=== PATIENT | male | born 1965 | race African-American/Black ===

== ENCOUNTER 2019-01-22 09:34 | Emergency (ER) | payer MEDICAID ==
[~2019-01-22] VITALS: Ht 180.3 cm; Wt 96.6 kg
[2019-01-22 10:11] LABS: Basophils # (auto) 0.1 uL; Basophils % (auto) 0.9 % (0.0-2.0); Eosinophils # (auto) 0.2 uL; Eosinophils % (auto) 2.8 % (0.0-7.0); Hemoglobin 15.3 g/dL (13.5-17.5); Lymphocytes # (auto) 2.1 uL; Lymphocytes % (auto) 33.1 % (10.0-50.0); Mean Corpuscular Hemoglobin 32.4 pg (28.0-32.0); Mean Corpuscular Hgb Conc. 33.2 g/dL (32.0-36.0); Mean Corpuscular Volume 97.8 fL (80.0-100.0); Monocytes # (auto) 0.4 uL; Monocytes % (auto) 6.7 % (0.0-12.0); Neutrophils # (auto) 3.5 uL; Neutrophils % (auto) 56.5 % (37.0-80.0); Nucleated Red Blood Cells % 0.1 %; Platelet Count (auto) 228 10^3/uL (140-450); Red Blood Cells 4.71 10^6/uL (4.5-5.90); Red Cell Distribution Width 13.4 % (11.8-14.3); White Blood Cell 6.3 10^3/uL (4.4-10.8)
[2019-01-22 10:21] LABS: Albumin 3.5 g/dL (3.4-5.0); Calcium 8.5 mg/dL (8.5-10.1); Potassium 4.1 mmol/L (3.5-5.1)
[2019-01-22 10:26] LABS: Bilirubin, Total 0.4 mg/dL (0.2-1.0); Total Protein 7.4 g/dL (6.4-8.2)
[2019-01-22] MEDS ORDERED: SODIUM CHLORIDE 0.9% 1,000 ML IV ONE (10:58)
[2019-01-22] MEDS ORDERED: ASPirin 81 mg TAB PO ONE (11:00)
[2019-01-22] MEDS ORDERED: cloNIDine HCL 0.1 MG TAB PO ONE (11:15)
[2019-01-22 11:39] LABS: INR 1.07 (0.9-1.15); Partial Thromboplastin Time 29.5 sec (23.64-32.05)
[2019-01-22 11:40] LABS: Urine Bacteria NONE SEEN /hpf (None Seen); Urine Blood Negative /uL (Negative); Urine Specific Gravity 1.012 (1.001-1.035); Urine WBC <1 /hpf (0 - 3)
[2019-01-22 11:41] VITALS: BP 179/108
[2019-01-23] MEDS ORDERED: CLOP75TA28 PO (00:09)
[2019-01-23] MEDS ORDERED: LISI-646 PO (00:09)
[2019-01-23] MEDS ORDERED: CAR125T PO (00:09)
[2019-01-23] MEDS ORDERED: ASPI-404 PO (00:09)
[2019-01-23] MEDS ORDERED: ATOR40TA52 PO (00:09)
== END 2019-01-22 13:55 | disposition home or self-care (01) ==
LOC: ER 09:39
DX: I24.9 Acute ischemic heart disease, unspecified (principal); I10 Essential (primary) hypertension; R73.9 Hyperglycemia, unspecified; Z98.61 Coronary angioplasty status
CPT/HCPCS: 36415; 71046; 80053; 81001; 83735; 84443; 84484; 85025; 85610; 85730; 93005; 99284; J7030

== ENCOUNTER 2019-01-22 15:48 | Inpatient (IN) | payer MEDICAID ==
[~2019-01-22] VITALS: Ht 180.3 cm; Wt 96.9 kg
[2019-01-22] MEDS ORDERED: LISINOPRIL 20 MG TAB PO ONE (17:15)
[2019-01-22] MEDS ORDERED: NITROGLYCERIN 0.4 MG SL TAB SL PRN (17:15)
[2019-01-22] MEDS ORDERED: HYDROcodone-ACET 5/325MG TAB PO PRN (17:15)
[2019-01-22] MEDS ORDERED: ONDANSETRON HCL 4 MG/2 ML VIAL IV PRN (17:15)
[2019-01-22] MEDS ORDERED: ACETAMINOPHEN 500 MG TAB PO PRN (17:15)
[2019-01-22] MEDS ORDERED: MORPHINE SULF INJ 2 MG/ML SYRINGE 1ML IV PRN ×2 (17:15)
[2019-01-22] MEDS: SODIUM CHLORIDE 0.9% 1,000 ML IV SCH (18:02)
[2019-01-22] MEDS: hydrALAZINE HCL 20 MG/ML VL IV PRN (19:30)
[2019-01-22] MEDS: METOPROLOL TARTRATE 25 MG TAB PO SCH (22:13)
[2019-01-22] MEDS: ATORVASTATIN 20 MG TAB PO SCH (22:13)
[2019-01-22 23:30] VITALS: BP 152/93
--- NOTE | 2019-01-22 23:30 | NUR ---
Telemetry admit from ER CUATE KULKARNI admitted to Telemetry unit after SBAR received. Patient oriented to Leda Crocker, primary RN, unit, room, bed, and unit policies regarding patient care and visiting hours. Patient now on continuous telemetry monitoring, tele box # [id number] and telemetry reading on arrival to unit is . Patient placed on bedside oxygen, weighed by bedscale and encouraged to call if they need something. All questions and concerns addressed, patient verbalized understanding. Note:
[2019-01-23] MEDS ORDERED: ASPI-404 PO (00:09)
[2019-01-23] MEDS ORDERED: LISI-646 PO (00:09)
[2019-01-23] MEDS ORDERED: CAR125T PO (00:09)
[2019-01-23] MEDS ORDERED: CLOP75TA28 PO (00:09)
[2019-01-23] MEDS ORDERED: ATOR40TA52 PO (00:09)
[2019-01-23 05:00] VITALS: BP 157/112
[2019-01-23] MEDS: SODIUM CHLORIDE 0.9% 1,000 ML IV SCH (05:55)
[2019-01-23 06:36] LABS: Basophils # (auto) 0.1 uL; Basophils % (auto) 1.1 % (0.0-2.0); Eosinophils # (auto) 0.2 uL; Eosinophils % (auto) 3.6 % (0.0-7.0); Hematocrit 42.9 % (41.0-53.0); Hemoglobin 14.6 g/dL (13.5-17.5); Lymphocytes # (auto) 1.8 uL; Lymphocytes % (auto) 29.5 % (10.0-50.0); Mean Corpuscular Hemoglobin 33.3 pg (28.0-32.0); Mean Corpuscular Hgb Conc. 34.1 g/dL (32.0-36.0); Mean Corpuscular Volume 97.6 fL (80.0-100.0); Monocytes # (auto) 0.7 uL; Monocytes % (auto) 11.2 % (0.0-12.0); Neutrophils # (auto) 3.3 uL; Neutrophils % (auto) 54.6 % (37.0-80.0); Nucleated Red Blood Cells % 0.2 %; Platelet Count (auto) 205 10^3/uL (140-450); Red Blood Cells 4.39 10^6/uL (4.5-5.90); Red Cell Distribution Width 13.1 % (11.8-14.3); White Blood Cell 6.1 10^3/uL (4.4-10.8)
[2019-01-23 06:46] LABS: INR 1.07 (0.9-1.15); Partial Thromboplastin Time 28.6 sec (23.64-32.05)
[2019-01-23 06:49] LABS: Calcium 8.6 mg/dL (8.5-10.1); Potassium 4.6 mmol/L (3.5-5.1)
[2019-01-23 06:52] LABS: BUN/Creatinine Ratio 7.4
--- NOTE | 2019-01-23 07:40 | NUR ---
Patient in bed, awake, oriented x4. No acute distress noted.
[2019-01-23] MEDS: FAMOTIDINE 20 MG TAB PO SCH (09:20)
[2019-01-23] MEDS: CLOPIDOGREL BISULFATE 75 MG TAB PO SCH (09:20)
[2019-01-23] MEDS: ASPirin-EC 81 mg tab PO SCH (09:20)
[2019-01-23] MEDS: METOPROLOL TARTRATE 25 MG TAB PO SCH ×2 (09:21→21:44)
[2019-01-23 09:40] VITALS: BP 166/89
[2019-01-23] MEDS ORDERED: amLODIPine BESYLATE 5 MG TAB PO SCH (10:00)
[2019-01-23] MEDS ORDERED: LISINOPRIL 10 MG TAB PO SCH (10:00)
--- NOTE | 2019-01-23 11:15 | NUR ---
Patient came from the bathroom.
[2019-01-23] MEDS: hydrALAZINE HCL 20 MG/ML VL IV PRN ×2 (12:05→17:59)
--- NOTE | 2019-01-23 12:05 | NUR ---
BP = 171/109. Hydralazine Inj 10 mg given as ordered.
[2019-01-23 13:00] VITALS: BP 171/109
[2019-01-23] MEDS ORDERED: LISINOPRIL 20 MG TAB PO ONE (13:30)
[2019-01-23] MEDS ORDERED: amLODIPine BESYLATE 5 MG TAB PO ONE (13:30)
--- NOTE | 2019-01-23 14:30 | NUR ---
Patient denies chest pain, stated he had shortness of breath earlier. Patient able to tolerate room air.
--- NOTE | 2019-01-23 14:36 | NUR ---
EKG done. EKG results placed in the patient's chart. Paged HARJIT Carrington.
[2019-01-23 17:10] VITALS: BP 174/113
--- NOTE | 2019-01-23 17:59 | NUR ---
BP = 178/110. Hydralazine Inj 10 mg given for SBP>150.
--- NOTE | 2019-01-23 19:30 | NUR ---
assumed care, pt. awake, no c/o pain, no sob.
[2019-01-23] MEDS: ATORVASTATIN 20 MG TAB PO SCH (21:44)
[2019-01-23 22:00] VITALS: BP 158/80
[2019-01-24 06:26] VITALS: BP 157/93
--- NOTE | 2019-01-24 07:25 | NUR ---
Patient in bed, awake, oriented x4. No acute distress noted. Received patient on saline lock, NS drip held due to elevated blood pressure SBP>150.
[2019-01-24 09:14] VITALS: BP 157/96
[2019-01-24] MEDS: ASPirin-EC 81 mg tab PO SCH (09:33)
[2019-01-24] MEDS: FAMOTIDINE 20 MG TAB PO SCH (09:34)
[2019-01-24] MEDS: METOPROLOL TARTRATE 25 MG TAB PO SCH (09:34)
[2019-01-24] MEDS: CLOPIDOGREL BISULFATE 75 MG TAB PO SCH (09:35)
[2019-01-24] MEDS ORDERED: amLODIPine BESYLATE 5 MG TAB PO SCH (10:00)
[2019-01-24] MEDS ORDERED: LISINOPRIL 10 MG TAB PO SCH (10:00)
--- NOTE | 2019-01-24 11:01 | NUR ---
BP =152/86, Heart rate = 58. Patient asked if he's going home today. Explained to patient the hospitalist will come over to see him. No discharge orders at this time.
--- NOTE | 2019-01-24 11:30 | NUR ---
Dr. Bain at bedside. explained to patient the medications he has to continue at home, he will prescribe another medication. Dr. Bain to discharge the patient today.
[2019-01-24] MEDS: hydrALAZINE HCL 20 MG/ML VL IV PRN (13:55)
--- NOTE | 2019-01-24 14:35 | NUR ---
Discharge instructions given as ordered. Encourage to follow up with PMD as instructed. All questions and concerns addressed. Patient verbalized understanding. Medication reconciliation form completed and copy given to patient. IV removed with catheter intact, pressure dressing applied. Telemetry unit returned to ICU. Patient is ambulatory, steady gait noted, patient refused to be taken to vehicle via wheelchair, patient with all personal belongings, accompanied by family member. No distress noted at time of departure.
== END 2019-01-24 14:35 | disposition home or self-care (01) | DRG 199 ==
LOC: ER 15:52 → TELE 15:53 → TELE-CENTR 23:11
PROVIDERS: ADMIT Nurse Practitioner Acute Care; ATTEND Internal Medicine
DX: I16.9 Hypertensive crisis, unspecified (principal); I21.A1 Myocardial infarction type 2; E78.00 Pure hypercholesterolemia, unspecified; I25.10 Atherosclerotic heart disease of native coronary artery without angina pectoris; E78.5 Hyperlipidemia, unspecified; I16.1 Hypertensive emergency; F12.90 Cannabis use, unspecified, uncomplicated; F17.210 Nicotine dependence, cigarettes, uncomplicated; I10 Essential (primary) hypertension; I25.2 Old myocardial infarction; Z79.899 Other long term (current) drug therapy; Z95.5 Presence of coronary angioplasty implant and graft; Z82.49 Family history of ischemic heart disease and other diseases of the circulatory system; Z83.3 Family history of diabetes mellitus
CPT/HCPCS: 36415; 80048; 84484; 85025; 85610; 85730; 86141; 93005; 93306; G0378